=== PATIENT | female | born 1975 | race Caucasian/White ===

== ENCOUNTER 2020-08-12 13:45 | Emergency (ER) | payer OTHER ==
[~2020-08-12] VITALS: Ht 157.5 cm; Wt 93.0 kg
[2020-08-12] MEDS ORDERED: FORTAMET500 MG (14:42)
[2020-08-12] MEDS ORDERED: LEVOTHYROXINE25 MCG (14:43)
[2020-08-12] MEDS ORDERED: LIPITOR40 M1 (14:43)
== END 2020-08-12 20:20 | disposition home or self-care (01) ==
LOC: ER 13:45
DX: A05.9 Bacterial foodborne intoxication, unspecified (principal); K29.60 Other gastritis without bleeding